=== PATIENT | male | born 1995 | race Asian ===

== ENCOUNTER 2016-12-07 16:36 | Emergency (ER) | payer OTHER ==
[~2016-12-07] VITALS: Ht 195.6 cm; Wt 113.4 kg
[2016-12-07] MEDS ORDERED: KETOROLAC 60 MG/2 ML VIAL (J1885) IM ONE (17:15)
[2016-12-07] MEDS ORDERED: IBUP600T26 PO (17:41)
[2016-12-07] MEDS ORDERED: CYCL10TA PO (17:41)
[2016-12-07] MEDS ORDERED: diazePAM 5 MG TAB PO ONE (17:45)
[2016-12-07 17:50] VITALS: BP 142/66
== END 2016-12-07 17:55 | disposition home or self-care (01) ==
LOC: M ED 17:37
DX: M54.42 Lumbago with sciatica, left side (principal)
CPT/HCPCS: 96372; 99282; J1885

== ENCOUNTER 2017-07-28 12:56 | Emergency (ER) | payer OTHER ==
[2017-07-28] MEDS: DERMABOND TOPICAL SKIN ADHESIVE TOP (14:28)
== END 2017-07-28 15:04 | disposition home or self-care (01) ==
LOC: M ED 12:56
DX: S61.213A Laceration without foreign body of left middle finger without damage to nail, initial encounter (principal); W26.0XXA Contact with knife, initial encounter; Y92.89 Other specified places as the place of occurrence of the external cause; F17.210 Nicotine dependence, cigarettes, uncomplicated; Z91.041 Radiographic dye allergy status
CPT/HCPCS: 12001